=== PATIENT | male | born 1945 | race Caucasian/White ===

== ENCOUNTER → 2016-08-30 | Outpatient (CLI) | payer MEDICARE ==
[2016-08-30 10:07] LABS: ABSOLUTE BASOPHILS # (AUTO) 0.1 10^3/uL (0.0-0.2); ABSOLUTE EOSINOPHILS # (AUTO) 0.2 10^3/uL (0.0-0.6); ABSOLUTE LYMPHOCYTES (AUTO) 1.2 10^3/uL (0.5-4.7); ABSOLUTE MONOCYTES (AUTO) 0.5 10^3/uL (0.1-1.4); BASOPHILS % (AUTO) 0.8 % (0-2); EOSINOPHILS % (AUTO) 2.8 % (0-6); HEMATOCRIT 42.3 % (37.9-51.0); HEMOGLOBIN 14.4 g/dL (13.5-17.0); HGB HCT DIFFERENCE 0.9; LYMPHOCYTES % (AUTO) 17.1 % (13-45); MEAN CORPUSCULAR HEMOGLOBIN 29.2 pg (27.0-33.4); MEAN CORPUSCULAR HGB CONC 34.1 g/dL (32.0-36.0); MEAN CORPUSCULAR VOLUME 86 fl (80-97); MONOCYTES % (AUTO) 7.8 % (3-13); RED BLOOD COUNT 4.93 10^6/uL (4.35-5.55); RED CELL DISTRIBUTION WIDTH 14.3 % (11.5-14.0); SEGMENTED NEUTROPHILS % (AUTO) 71.5 % (42-78); WHITE BLOOD COUNT 6.9 10^3/uL (4.0-10.5)
[2016-08-30 10:39] LABS: ALANINE AMINOTRANSFERASE 27 U/L (21-72); ALBUMIN 3.9 g/dL (3.5-5.0); ALKALINE PHOSPHATASE 79 U/L (38-126); ANION GAP 13 (5-19); ASPARTATE AMINO TRANSFERASE 29 U/L (17-59); BILIRUBIN,DIRECT 0.1 mg/dL (0.0-0.4); BILIRUBIN,TOTAL 0.6 mg/dL (0.2-1.3); BLOOD UREA NITROGEN 28 mg/dL (7-20); CALCIUM 9.3 mg/dL (8.4-10.2); CARBON DIOXIDE 30 mmol/L (22-30); CHLORIDE 104 mmol/L (98-107); CHOLESTEROL 203.53 mg/dL (0-200); CREATININE RESULT 1.36 mg/dL (0.52-1.25); Direct HDL 41 mg/dL (>40); GLUCOSE 97 mg/dL (75-110); POTASSIUM 4.8 mmol/L (3.6-5.0); SODIUM 146.6 mmol/L (137-145); TOTAL PROTEIN 6.8 g/dL (6.3-8.2); TRIGLYCERIDES 140 mg/dL (<150)
[2016-08-30 10:50] LABS: DIRECT LDL 123 mg/dL (<100)
== END ==
LOC: OD 08:43
PROVIDERS: ATTEND Internal Medicine
DX: I10 Essential (primary) hypertension (principal); E78.5 Hyperlipidemia, unspecified; Z79.899 Other long term (current) drug therapy; G30.9 Alzheimer's disease, unspecified
CPT/HCPCS: 36415; 80053; 80061; 85025

== ENCOUNTER → 2017-11-10 | Outpatient (CLI) | payer MEDICARE ==
[2017-11-10 09:36] LABS: HEMATOCRIT 40.4 % (37.9-51.0); HEMOGLOBIN 13.9 g/dL (13.5-17.0); MEAN CORPUSCULAR HEMOGLOBIN 29.4 pg (27.0-33.4); MEAN CORPUSCULAR HGB CONC 34.5 g/dL (32.0-36.0); MEAN CORPUSCULAR VOLUME 85 fl (80-97); PLATELET COUNT 136 10^3/uL (150-450); RED BLOOD COUNT 4.75 10^6/uL (4.35-5.55); WHITE BLOOD COUNT 13.9 10^3/uL (4.0-10.5)
[2017-11-10 09:54] LABS: ALANINE AMINOTRANSFERASE 23 U/L (21-72); ALBUMIN 3.5 g/dL (3.5-5.0); ALKALINE PHOSPHATASE 83 U/L (38-126); ANION GAP 10 (5-19); ASPARTATE AMINO TRANSFERASE 23 U/L (17-59); BILIRUBIN,DIRECT 0.4 mg/dL (0.0-0.4); BILIRUBIN,TOTAL 1.1 mg/dL (0.2-1.3); BLOOD UREA NITROGEN 23 mg/dL (7-20); CALCIUM 8.8 mg/dL (8.4-10.2); CARBON DIOXIDE 29 mmol/L (22-30); CHLORIDE 101 mmol/L (98-107); CHOLESTEROL 159.17 mg/dL (0-200); GLUCOSE 119 mg/dL (75-110); SODIUM 139.8 mmol/L (137-145); TOTAL PROTEIN 6.8 g/dL (6.3-8.2); TRIGLYCERIDES 106 mg/dL (<150)
[2017-11-10 10:05] LABS: DIRECT LDL 84 mg/dL (<100)
[2017-11-10 10:06] LABS: ABSOLUTE LYMPHOCYTES# (MANUAL) 0.3 10^3/uL (0.5-4.7); ABSOLUTE MONOCYTES # (MANUAL) 0.7 10^3/uL (0.1-1.4); ABSOLUTE NEUTROPHILS# (MANUAL) 12.9 10^3/uL (1.7-8.2); BAND NEUTROPHILS % (MANUAL) 1 % (3-5); BASOPHILS % (MANUAL) 0 % (0-2); EOSINOPHILS % (MANUAL) 0 % (0-6); LYMPHOCYTES % (MANUAL) 2 % (13-45); MONOCYTES % (MANUAL) 5 % (3-13); SEGMENTED NEUTROPHILS % (MAN) 92 % (42-78); TOTAL CELLS COUNTED 100
[2017-11-10 10:07] LABS: PLATELET COMMENT ADEQUATE; RBC MORPHOLOGY COMMENT NORMO-CYTIC/CHROMIC; TOXIC GRANULATION 1+; TOXIC VACUOLATION PRESENT
== END ==
LOC: OD 08:49
PROVIDERS: ATTEND Internal Medicine
DX: I12.9 Hypertensive chronic kidney disease with stage 1 through stage 4 chronic kidney disease, or unspecified chronic kidney disease (principal); N18.3 Chronic kidney disease, stage 3 (moderate); R35.0 Frequency of micturition; R39.15 Urgency of urination; Z12.5 Encounter for screening for malignant neoplasm of prostate; Z79.899 Other long term (current) drug therapy
CPT/HCPCS: 36415; 85025; 80053; 80061; G0103

== ENCOUNTER → 2018-11-27 | Outpatient (CLI) | payer MEDICARE ==
[2018-11-27 10:58] LABS: ABSOLUTE EOSINOPHILS # (AUTO) 0.1 10^3/uL (0.0-0.6); ABSOLUTE LYMPHOCYTES (AUTO) 1.1 10^3/uL (0.5-4.7); ABSOLUTE MONOCYTES (AUTO) 0.4 10^3/uL (0.1-1.4); ABSOLUTE NEUT (AUTO) 3.6 10^3/uL (1.7-8.2); BASOPHILS % (AUTO) 0.8 % (0-2); EOSINOPHILS % (AUTO) 2.6 % (0-6); HEMATOCRIT 42.5 % (37.9-51.0); HEMOGLOBIN 14.6 g/dL (13.5-17.0); LYMPHOCYTES % (AUTO) 20.3 % (13-45); MEAN CORPUSCULAR HEMOGLOBIN 29.7 pg (27.0-33.4); MEAN CORPUSCULAR HGB CONC 34.2 g/dL (32.0-36.0); MEAN CORPUSCULAR VOLUME 87 fl (80-97); MONOCYTES % (AUTO) 8.2 % (3-13); PLATELET COUNT 161 10^3/uL (150-450); RED CELL DISTRIBUTION WIDTH 13.8 % (11.5-14.0); SEGMENTED NEUTROPHILS % (AUTO) 68.1 % (42-78); TOTAL CELLS COUNTED % (AUTO) 100 %; WHITE BLOOD COUNT 5.2 10^3/uL (4.0-10.5)
[2018-11-27 11:20] LABS: ALANINE AMINOTRANSFERASE 18 U/L (21-72); ALBUMIN 3.7 g/dL (3.5-5.0); ALKALINE PHOSPHATASE 74 U/L (38-126); ANION GAP 6 (5-19); ASPARTATE AMINO TRANSFERASE 24 U/L (17-59); BILIRUBIN,DIRECT 0.2 mg/dL (0.0-0.4); BILIRUBIN,TOTAL 0.6 mg/dL (0.2-1.3); BLOOD UREA NITROGEN 26 mg/dL (7-20); CALCIUM 9.1 mg/dL (8.4-10.2); CARBON DIOXIDE 32 mmol/L (22-30); CHLORIDE 107 mmol/L (98-107); CHOLESTEROL 185.34 mg/dL (0-200); GLUCOSE 97 mg/dL (75-110); SODIUM 144.9 mmol/L (137-145); TOTAL PROTEIN 6.8 g/dL (6.3-8.2); TRIGLYCERIDES 189 mg/dL (<150)
[2018-11-27 11:31] LABS: DIRECT LDL 120 mg/dL (<100)
[2018-11-27 11:53] LABS: VLDL CHOLESTEROL 37.8 mg/dL (10-31)
== END ==
LOC: OD 10:05
PROVIDERS: ATTEND Internal Medicine
DX: I12.9 Hypertensive chronic kidney disease with stage 1 through stage 4 chronic kidney disease, or unspecified chronic kidney disease (principal); N18.3 Chronic kidney disease, stage 3 (moderate); R35.0 Frequency of micturition; Z79.899 Other long term (current) drug therapy; Z12.5 Encounter for screening for malignant neoplasm of prostate; N40.1 Benign prostatic hyperplasia with lower urinary tract symptoms; R39.11 Hesitancy of micturition
CPT/HCPCS: 36415; 80053; 80061; 84153; 85025

== ENCOUNTER 2019-01-16 20:57 | Observation (INO) | payer MEDICARE ==
[2019-01-17] MEDS ORDERED: ACETAMINOPHEN 325 MG TABLET PO ONE ×2 (01:42→02:23)
[2019-01-17] MEDS ORDERED: NORMAL SALINE 1000 ML 1,000 ML IV ONE ×3 (02:23→06:29)
--- NOTE | 2019-01-17 02:32 | ER Document Report ---
ED General - General TRAVEL OUTSIDE OF THE [place] IN LAST 30 DAYS: No <YU MCGEE - Last Filed: 01/17/19 04:14> <SETH MERCADO - Last Filed: 01/17/19 07:31> - General Chief Complaint: Testicular Problem Stated Complaint: TESTICLE PROBLEM Time Seen by Provider: 01/17/19 01:59 Primary Care Provider: BARRINGTON MATTHEW MD [Primary Care Provider] - Follow up as needed - HPI Notes: Patient is a 74-year-old male, with a history of dementia, brought into emergency department for evaluation by daughter. She is the primary chart computer, as well as the primary historian. Patient evidently was lying in bed after a shower today. Patient's daughter noted an extremely foul-smelling drainage on the sheets below him. She thought he had a bowel movement. She took him to the bathroom to clean him up, realized this was not rectal. She then found swelling around his scrotum, so she brings him here for further evaluation. She was unaware of any fevers at home. She states he is actually been drinking more than normal. Otherwise has been acting normal, denies any pain, but the daughter states he usually answers questions with "no." She states a few weeks ago he did seem to have some urinary hesitancy, he actually has a urology follo w-up tomorrow. He had a urinalysis which was found to be unremarkable. (YU MCGEE) - Related Data Allergies/Adverse Reactions: No Known Allergies Allergy (Unverified 01/17/19 04:56) Past Medical History - General Information source: Relative - Social History Smoking Status: Unknown if Ever Smoked Family History: Reviewed & Not Pertinent - Past Medical History Cardiac Medical History: Reports: Hx Hypertension Renal/ Medical History: Reports: Hx Benign Prostatic Hyperplasia Psychiatric Medical History: Reports: Hx Dementia <YU MCGEE - Last Filed: 01/17/19 04:14> Review of Systems - Review of Systems Constitutional: See HPI EENT: No symptoms reported Respiratory: No symptoms reported Gastrointestinal: No symptoms reported Genitourinary: No symptoms reported Musculoskeletal: No symptoms reported Skin: See HPI Neurological/Psychological: No symptoms reported <YU MCGEE - Last Filed: 01/17/19 04:14> Physical Exam <FRIESYU - Last Filed: 01/17/19 04:14> - Vital signs Vitals: Temp Pulse Resp BP Pulse Ox 100.7 F H 80 17 104/58 L 94 01/16/19 21:18 01/16/19 21:18 01/16/19 21:18 01/16/19 21:18 01/16/19 21:18 - Notes Notes: This is a pleasant 74-year-old male who appears his stated age, no acute distress. Head is normocephalic and appears atraumatic. Pupils are equal round, reactive to light. Oral mucosa is moist. Heart is regular rate and rhythm, lungs are clear to station bilaterally. Abdomen is soft, nontender, normoactive bowel sounds. Testicular exam is performed with NADYA Grissom, present in the room. Patient has no significant scrotal edema or erythema. No testicular tenderness. Intact cremasteric reflex. Just to the left of the scrotum is an approximately 6 x 8 cm, erythematous, indurated lesion consistent with an abscess. It is markedly tender. There is a 2 mm opening in the center of the abscess, no significant drainage noted at this time. Extremities without cyanosis or clubbing. No posterior calf tenderness. Peripheral pulses are equal. (YU MCGEE) Course - Laboratory Result Diagrams: 01/17/19 02:30 01/17/19 02:30 <YU MCGEE - Last Filed: 01/17/19 04:14> - Laboratory Result Diagrams: 01/17/19 02:30 01/17/19 03:29 <SETH MERCADO - Last Filed: 01/17/19 07:31> - Re-evaluation Re-evalutation: 01/17/19 02:31 Patient presents to the emergency department for evaluation. As he was febrile and a poor historian, his presentation did prompt sepsis protocol. I did order 2 L of IV fluids, one is a bolus, 1 his maintenance. I am concerned that the 74-year-old male who does not complain in fact has some aspects of congestive heart failure. I was unable to find any visit history on this patient here, no echocardiograms noted. He was given Tylenol for his fever. CT scan of the pelvis was ordered to further evaluate the area, we will continue to monitor. 01/17/19 04:09 Still awaiting chemistry. Because of this, patient has not yet received CT scan. Patient does not meet sepsis criteria. While he is febrile, his heart rate is normal. His white blood cell count is normal. His respiratory rate is normal. I am still waiting to see what kind of surgical exploration might be necessary based on the extent of this abscess. Care of this patient was turned over physician Dr. Seth Mercado, please see his note for the remainder this patient's ED course and disposition. 01/17/19 04:14 And patient does not meet sepsis criteria at this time. He is resting comfortably. I did go ahead and order IV clindamycin to cover for pathogens in this region. (YU MCGEE) 01/17/19 04:37 Care assumed at 0 400. I went and examined the patient. Abdomen is nontender. I question mild bladder fullness but is nontender through that region. Creatinine level is normal and CT scan is ordered and is pending. Examination of the scrotal area shows the lower inferior left lateral aspect of the scrotum there appears to be an abscess measuring approximately 4 x 6 cm that does not extend to the gabbie-rectal region and does not cross the midline. Testicles are not involved although it is right along the edge of the scrotum. There is a obvious foul odor to the drainage which was sent for culture. Lactic acid is normal at 0.7, but patient has received 500 cc of IV normal saline and his systolic blood pressure is 89. Patient will be given additional IV fluids and will add vancomycin to the clindamycin the patient has received. Patient's regular medications are Flomax, Exelon, lisinopril, hydrochlorothiazide. CT scan can evaluate for urinary retention as well as the extent of the patient's abscess. Discussion was undertaken with the surgical list to came down to evaluate the patient and performed incision and drainage on the patient's scrotal abscess. There is concern for the patient's relative hypotension and possibility of sepsis. Patient had received 30 cc/kg of normal saline and has received vancomycin and clindamycin. Given the concern for possible sepsis, patient will need admission for further evaluation and observation and follow culture results. Call placed to the hospitalist at [phone]. 01/17/19 07:13 Discussed with DREAD Boateng who agreed to see the patient and admit. 01/17/19 07:30 (SETH MERCADO) - Vital Signs Vital signs: Temp Pulse Resp BP Pulse Ox 100.7 F H 80 16 104/65 95 01/16/19 21:18 01/16/19 21:18 01/17/19 07:02 01/17/19 07:02 01/17/19 07:02 - Laboratory Laboratory results interpreted by me: 01/17/19 01/17/19 01/17/19 02:30 03:29 06:03 RBC 4.30 L Hgb 12.6 L Hct 36.5 L Lymph % (Auto) 12.4 L Sodium 136.4 L Potassium 3.5 L BUN 25 H Glucose 113 H Total Protein 6.1 L Albumin 3.0 L Urine Urobilinogen 2.0 H Critical Care Note - Critical Care Note Total time excluding time spent on procedures (mins): 40 <SETH MERCADO - Last Filed: 01/17/19 07:31> Discharge <YU MCGEE - Last Filed: 01/17/19 04:14> - Discharge Admitting Provider: Lennie (Hospitalist) Unit Admitted: Telemetry <SETH MERCADO - Last Filed: 01/17/19 07:31> - Discharge Clinical Impression: Abscess, Sepsis associated hypotension Fever Qualifiers: Fever type: unspecified Qualified Code(s): R50.9 - Fever, unspecified Condition: Stable Disposition: ADMITTED INPATIENT Referrals: BARRINGTON MATTHEW MD [Primary Care Provider] - Follow up as needed
[2019-01-17 02:48] LABS: INTERNATIONAL RATION (INR) 1.13; PROTHROMBIN TIME 14.6 SEC (11.4-15.4)
[2019-01-17 02:51] LABS: ABSOLUTE EOSINOPHILS # (AUTO) 0.2 10^3/uL (0.0-0.6); ABSOLUTE LYMPHOCYTES (AUTO) 1.1 10^3/uL (0.5-4.7); ABSOLUTE MONOCYTES (AUTO) 0.8 10^3/uL (0.1-1.4); ABSOLUTE NEUT (AUTO) 6.8 10^3/uL (1.7-8.2); BASOPHILS % (AUTO) 0.3 % (0-2); EOSINOPHILS % (AUTO) 1.9 % (0-6); HEMATOCRIT 36.5 % (37.9-51.0); HEMOGLOBIN 12.6 g/dL (13.5-17.0); LYMPHOCYTES % (AUTO) 12.4 % (13-45); MEAN CORPUSCULAR HEMOGLOBIN 29.3 pg (27.0-33.4); MEAN CORPUSCULAR HGB CONC 34.5 g/dL (32.0-36.0); MEAN CORPUSCULAR VOLUME 85 fl (80-97); MONOCYTES % (AUTO) 9.3 % (3-13); PLATELET COUNT 217 10^3/uL (150-450); RED CELL DISTRIBUTION WIDTH 13.5 % (11.5-14.0); SEGMENTED NEUTROPHILS % (AUTO) 76.1 % (42-78); TOTAL CELLS COUNTED % (AUTO) 100 %; WHITE BLOOD COUNT 8.9 10^3/uL (4.0-10.5)
--- NOTE | 2019-01-17 02:51 | RADIOLOGY REPORT (SQ) ---
CLINICAL HISTORY: fever COMPARISON: None. TECHNIQUE: XR CHEST 1 VIEW 01/17/2019 1:42 AM CDT FINDINGS: Cardiac silhouette is normal in size. Lungs are clear without consolidation, atelectasis, mass or edema. There is no pleural effusion. There is no pneumothorax. There are no acute osseous findings. IMPRESSION: Clear lungs.
[2019-01-17 03:24] LABS: VENOUS BLOOD BASE EXCESS 4.9 mmol/L; VENOUS BLOOD HCO3 30.2 mmol/L (20-32); VENOUS BLOOD PCO2 47.3 mmHg (35-63); VENOUS BLOOD PH 7.42 (7.30-7.42)
[2019-01-17] MEDS ORDERED: CLINDAMYCIN 900 MG/D5W RTU 900 MG/50 ML RTUPB IV ONE (04:13)
[2019-01-17 04:15] LABS: ALKALINE PHOSPHATASE 79 U/L (38-126); ANION GAP 8 (5-19); ASPARTATE AMINO TRANSFERASE 19 U/L (17-59); BILIRUBIN,DIRECT 0.4 mg/dL (0.0-0.4); BILIRUBIN,TOTAL 0.4 mg/dL (0.2-1.3); BLOOD UREA NITROGEN 25 mg/dL (7-20); CALCIUM 8.4 mg/dL (8.4-10.2); CARBON DIOXIDE 26 mmol/L (22-30); CHLORIDE 102 mmol/L (98-107); GLUCOSE 113 mg/dL (75-110); POTASSIUM 3.5 mmol/L (3.6-5.0); TOTAL PROTEIN 6.1 g/dL (6.3-8.2)
[2019-01-17] MEDS ORDERED: VANCOMYCIN HCL INJ 1000 MG VIAL IV ONE (04:36)
--- NOTE | 2019-01-17 05:50 | RADIOLOGY REPORT (SQ) ---
CLINICAL HISTORY: left inguinal/periscrotal abscess COMPARISON: None. TECHNIQUE: CT PELVIS WITH IV CONTRAST on 01/17/2019 2:26 AM CDT This exam was performed according to our departmental dose-optimization program, which includes automated exposure control, adjustment of the mA and/or kV according to patient size and/or use of iterative reconstruction technique. FINDINGS: There is no bowel obstruction. Urinary bladder is unremarkable. There is no free fluid. Skeleton: There are no acute osseous findings. No suspicious bony lesions. There are phlegmonous changes within the left scrotum. There may be a small associated fluid collection measuring 3.2 x 1.8 cm. There is diffuse thickening of the left scrotal skin. IMPRESSION: Left scrotal phlegmonous changes with possible small associated abscess. No subcutaneous air.
[2019-01-17] MEDS ORDERED: LIDOCAINE 1% INJ-PF (10 MG/ML) 30 ML SDV INJ ONE (06:06)
[2019-01-17] MEDS ORDERED: LIDOCAINE 1%/EPINEPHRINE INJ 20 ML VIAL ONE (06:30)
[2019-01-17 06:43] LABS: APPEARANCE,URINE SLIGHTLY-CLOUDY; BILIRUBIN,URINE NEGATIVE (NEGATIVE); COLOR,URINE YELLOW; GLUCOSE, URINE NEGATIVE (NEGATIVE); KETONES,URINE NEGATIVE (NEGATIVE); LEUKOCYTE ESTERASE,URINE NEGATIVE (NEGATIVE); NITRITE,URINE NEGATIVE (NEGATIVE); PROTEIN,URINE NEGATIVE (NEGATIVE); URINE SPECIFIC GRAVITY 1.023
--- NOTE | 2019-01-17 07:17 | EKG REPORT ---
SEVERITY:- ABNORMAL ECG - SINUS RHYTHM LEFT ANTERIOR FASCICULAR BLOCK CONSIDER ANTERIOR INFARCT BORDERLINE T ABNORMALITIES, INFERIOR LEADS : Confirmed by: Nikita Bridges MD 17-Jan-2019 07:16:52
--- NOTE | 2019-01-17 09:23 | PDOC CONSULTATION ---
Consultation Consult Date: 01/17/19 Provider Consulted: DIONNE FARIAS History of Present Illness Admission Date/PCP: 01/17/19 07:45 BARRINGTON MATTHEW MD History of Present Illness: PURA BROWN is a 74 year old male who presented to the emergency room with testicular swelling and scrotal swelling noted by his daughter while he was taking a shower. The daughter also noticed purulent drainage and brought the patient to the emergency room. Patient was seen by the emergency room physician who ordered a CT scan which showed a large scrotal abscess on the left side of the scrotum. Surgical consultation is obtained for incision and drainage. Past Medical History Cardiac Medical History: Reports: Hypertension Psychiatric Medical History: Reports: Dementia Social History Smoking Status: Unknown if Ever Smoked Family History Family History: Reviewed & Not Pertinent Parental Family History Reviewed: No Children Family History Reviewed: NA Sibling(s) Family History Reviewed.: NA Medication/Allergy Allergies/Adverse Reactions: No Known Allergies Allergy (Unverified 01/17/19 04:56) Review of Systems ROS unobtainable: Due to mental status Constitutional: ABSENT: chills, fever(s), headache(s), weight gain, weight loss Eyes: PRESENT: as per HPI. ABSENT: visual disturbances Nose, Mouth, and Throat: PRESENT: as per HPI Cardiovascular: PRESENT: as per HPI Respiratory: PRESENT: as per HPI Gastrointestinal: PRESENT: as per HPI Genitourinary: PRESENT: as per HPI Musculoskeletal: PRESENT: as per HPI Integumentary: PRESENT: as per HPI Neurological: PRESENT: as per HPI Psychiatric: PRESENT: as per HPI Endocrine: PRESENT: as per HPI Hematologic/Lymphatic: PRESENT: as per HPI Allergic/Immunologic: PRESENT: as per HPI Physical Exam Vital Signs: Temp Pulse Resp BP Pulse Ox 100.7 F H 80 12 109/59 L 97 01/16/19 21:18 01/16/19 21:18 01/17/19 09:01 01/17/19 09:00 01/17/19 09:01 Intake & Output 01/16/19 01/17/19 01/18/19 06:59 06:59 06:59 Intake Total 1050 Balance 1050 Weight 71.5 kg General appearance: PRESENT: no acute distress, cooperative Head exam: PRESENT: atraumatic Eye exam: PRESENT: EOMI Ear exam: PRESENT: normal external ear exam Mouth exam: PRESENT: dry mucosa Teeth exam: PRESENT: edentulous Neck exam: PRESENT: full ROM Respiratory exam: PRESENT: clear to auscultation mckayla Cardiovascular exam: PRESENT: RRR Pulses: PRESENT: normal femoral pulses, normal dorsalis pedis pul Vascular exam: PRESENT: normal capillary refill GI/Abdominal exam: PRESENT: soft Rectal exam: PRESENT: deferred Gentrourinary exam: PRESENT: scrotal swelling - Approximately a 3 cm abscess in the left scrotal wall Extremities exam: PRESENT: full ROM Musculoskeletal exam: PRESENT: full ROM Neurological exam: PRESENT: awake Psychiatric exam: PRESENT: agitated Skin exam: PRESENT: dry Results Laboratory Results: 01/17/19 02:30 01/17/19 03:29 01/17/19 01/17/19 01/17/19 02:30 02:30 02:30 WBC 8.9 RBC 4.30 L Hgb 12.6 L Hct 36.5 L MCV 85 MCH 29.3 MCHC 34.5 RDW 13.5 Plt Count 217 Seg Neutrophils % 76.1 VBG pH VBG pCO2 VBG HCO3 VBG Base Excess Sodium Cancelled Potassium Cancelled Chloride Cancelled Carbon Dioxide Cancelled Anion Gap Cancelled BUN Cancelled Creatinine Cancelled Est GFR ( Amer) Cancelled Est GFR (Non-Af Amer) Cancelled Glucose Cancelled Lactic Acid 0.7 Calcium Cancelled Total Bilirubin Cancelled AST Cancelled Alkaline Phosphatase Cancelled Total Protein Cancelled Albumin Cancelled Urine Color Urine Appearance Urine pH Ur Specific [place] Urine Protein Urine Glucose (UA) Urine Ketones Urine Blood Urine Nitrite Ur Leukocyte Esterase Urine WBC (Auto) Urine RBC (Auto) 01/17/19 01/17/19 01/17/19 03:03 03:29 06:03 WBC RBC Hgb Hct MCV MCH MCHC RDW Plt Count Seg Neutrophils % VBG pH 7.42 VBG pCO2 47.3 VBG HCO3 30.2 VBG Base Excess 4.9 Sodium 136.4 L Potassium 3.5 L Chloride 102 Carbon Dioxide 26 Anion Gap 8 BUN 25 H Creatinine 1.15 Est GFR ( Amer) > 60 Est GFR (Non-Af Amer) Glucose 113 H Lactic Acid Calcium 8.4 Total Bilirubin 0.4 AST 19 Alkaline Phosphatase 79 Total Protein 6.1 L Albumin 3.0 L Urine Color YELLOW Urine Appearance SLIGHTLY-CLOUDY Urine pH 5.0 Ur Specific [place] 1.023 Urine Protein NEGATIVE Urine Glucose (UA) NEGATIVE Urine Ketones NEGATIVE Urine Blood NEGATIVE Urine Nitrite NEGATIVE Ur Leukocyte Esterase NEGATIVE Urine WBC (Auto) 1 Urine RBC (Auto) 1 Impressions: Chest X-Ray 01/17/19 01:42 IMPRESSION: Clear lungs. Pelvis CT 01/17/19 02:26 IMPRESSION: Left scrotal phlegmonous changes with possible small associated abscess. No subcutaneous air. Assessment & Plan - Plan Summary Plan Summary: Scrotal abscess left scrotal wall Plan for incision and drainage at bedside.
--- NOTE | 2019-01-17 09:26 | Operative Report ---
Nonrecallable Operative Report DATE OF SURGERY: 01/17/19 PREOPERATIVE DIAGNOSIS: Scrotal abscess POSTOPERATIVE DIAGNOSIS: Scrotal abscess OPERATION: Incision and drainage of scrotal abscess SURGEON: DIONNE FARIAS ANESTHESIA: Local TISSUE REMOVED OR ALTERED: None COMPLICATIONS: None ESTIMATED BLOOD LOSS: 5 cc INTRAOPERATIVE FINDINGS: See procedure note PROCEDURE: Patient was placed in a frog-leg position on the emergency room [facility] the left scrotum was prepped and draped in the usual sterile fashion after appropriate timeout and site verification the area over the lateral aspect of the left scrotum was anesthetized with 1% lidocaine with epinephrine. A 3 cm incision was made longitudinally over t the abscess cavity and dissection was carried down through subcutaneous tissue with the 11 blade that was used to make the initial incision. Quickly we entered the abscess cavity. Large amount of all clot and necrotic debris as well as pus exudes was drained from the abscess cavity. Was then irrigated with sterile saline. The abscess cavity was then packed with a iodoform impregnated strip gauze. A scrotal support and sterile dressing were applied at the termination of the procedure.
[2019-01-17] MEDS ORDERED: ACETAMINOPHEN 325 MG TABLET PO PRN (09:33)
[2019-01-17] MEDS ORDERED: ONDANSETRON 4 MG TAB.RAPDIS PO PRN (09:33)
[2019-01-17] MEDS ORDERED: ALBUTEROL SULFATE 0.083% NEB 2.5 MG/3 ML AMPUL NEB PRN (09:33)
[2019-01-17] MEDS ORDERED: MAG HYDROX/AL HYDROX/SIMETH SUSP 30 ML UDCUP PO PRN (09:33)
[2019-01-17] MEDS: DOCUSATE SODIUM 100 MG CAPSULE PO SCH (11:58)
[2019-01-17] MEDS: CLINDAMYCIN HCL 150 MG CAPSULE PO SCH ×2 (12:34→17:13)
[2019-01-17] MEDS: HEPARIN SOD (PORCINE) 5,000 UNIT/ML 1 ML VIAL SUBCUT SCH ×2 (16:43→21:18)
[2019-01-17] MEDS ORDERED: (PENDING PHARMACY ID) (Rivastigmine Tartrate [Rivastigmine] 6 MG) PO SCH (18:00)
--- NOTE | 2019-01-17 20:27 | PDOC H&P ---
History of Present Illness Admission Date/PCP: 01/17/19 07:45 BARRINGTON MATTHEW MD History of Present Illness: PURA BROWN is a 74 year old male with a past medical history significant for hypertension, BPH, and advanced dementia who was seen in the emergency department today with a scrotum abscess, now status post I&D by Dr. Adams. Patient had been preparing to discharge to home when he was noted to have Hypotension with a blood pressure of 89/59. Evaluation in the emergency department revealed normal WBC, baseline anemia (hemoglobin 12), overall unremarkable chemistry, negative urinalysis, normal chest x-ray, and pelvic CT that demonstrated left scrotal changes with possible small abscess. He was referred to the hospitalist service for observational admission and mejia gement of hypotension. Past Medical History Cardiac Medical History: Reports: Hypertension Denies: Coronary Artery Disease, Myocardial Infarction, Hyperlipidema Pulmonary Medical History: Reports: None EENT Medical History: Reports: None Neurological Medical History: Reports: Other - Dementia Endocrine Medical History: Reports: None Renal/ Medical History: Reports: None Malignancy Medical History: Reports: None GI Medical History: Reports: None Musculoskeltal Medical History: Reports: None Skin Medical History: Reports: None Psychiatric Medical History: Reports: Dementia, Depression Traumatic Medical History: Reports: None Hematology: Reports: None Infectious Medical History: Reports: None Past Surgical History Past Surgical History: Reports: Cholecystectomy Social History Information Source: Patient Lives with: Family Smoking Status: Former Smoker Frequency of Alcohol Use: None Hx Recreational Drug Use: No Hx Prescription Drug Abuse: No - Advance Directive Resuscitation Status: Do Not Resuscitate Surrogate healthcare decision maker:: The patient's daughter, Susan Santana, Family History Family History: Reviewed & Not Pertinent Parental Family History Reviewed: Yes Children Family History Reviewed: Yes Sibling(s) Family History Reviewed.: Yes Medication/Allergy Home Medications: Cyanocobalamin (Vitamin B-12) [B-12] 1,000 mcg PO DAILY 01/17/19 Lisinopril/Hydrochlorothiazide [Lisinopril-Hctz 20-12.5 mg Tab] 1 each PO DAILY 01/17/19 Quetiapine Fumarate [Seroquel] 200 mg PO QHS 01/17/19 Rivastigmine Tartrate [Rivastigmine] 6 mg PO BID 01/17/19 Tamsulosin HCl [Flomax 0.4 mg Cap.sr] 0.4 mg PO DAILY 01/17/19 Allergies/Adverse Reactions: No Known Allergies Allergy (Unverified 01/17/19 04:56) Review of Systems Constitutional: ABSENT: chills, fever(s), headache(s), weight gain, weight loss Eyes: ABSENT: visual disturbances Ears: ABSENT: hearing changes Cardiovascular: ABSENT: chest pain, dyspnea on exertion, edema, orthropnea, palpitations Respiratory: ABSENT: cough, hemoptysis Gastrointestinal: ABSENT: abdominal pain, constipation, diarrhea, hematemesis, hematochezia, nausea, vomiting Genitourinary: ABSENT: dysuria, hematuria Musculoskeletal: ABSENT: joint swelling Integumentary: PRESENT: wounds. ABSENT: rash Neurological: ABSENT: abnormal gait, abnormal speech, confusion, dizziness, focal weakness, syncope Psychiatric: ABSENT: anxiety, depression, homidical ideation, suicidal ideation Endocrine: ABSENT: cold intolerance, heat intolerance, polydipsia, polyuria Hematologic/Lymphatic: ABSENT: easy bleeding, easy bruising Physical Exam Vital Signs: Temp Pulse Resp BP Pulse Ox 97.3 F 56 L 17 120/68 100 01/17/19 15:20 01/17/19 15:20 01/17/19 15:20 01/17/19 15:20 01/17/19 15:20 Intake & Output 01/16/19 01/17/19 01/18/19 06:59 06:59 06:59 Intake Total 1050 2240 Balance 1050 2240 Weight 71.5 kg General appearance: PRESENT: no acute distress, cooperative, well-developed, well-nourished Head exam: PRESENT: atraumatic, normocephalic Eye exam: PRESENT: conjunctiva pink, EOMI, PERRLA. ABSENT: scleral icterus Ear exam: PRESENT: normal external ear exam Mouth exam: PRESENT: moist, tongue midline Neck exam: ABSENT: carotid bruit, JVD, lymphadenopathy, thyromegaly Respiratory exam: PRESENT: clear to auscultation mckayla. ABSENT: rales, rhonchi, wheezes Cardiovascular exam: PRESENT: RRR. ABSENT: diastolic murmur, rubs, systolic murmur Pulses: PRESENT: normal dorsalis pedis pul Vascular exam: PRESENT: normal capillary refill GI/Abdominal exam: PRESENT: normal bowel sounds, soft. ABSENT: distended, guarding, mass, organolmegaly, rebound, tenderness Rectal exam: PRESENT: deferred Extremities exam: PRESENT: full ROM. ABSENT: calf tenderness, clubbing, pedal edema Neurological exam: PRESENT: alert, awake, oriented to person, CN II-XII grossly intact, other - Conversational, socially appropriate, pleasantly confused. ABSENT: motor sensory deficit Psychiatric exam: PRESENT: appropriate affect, normal mood. ABSENT: homicidal ideation, suicidal ideation Skin exam: PRESENT: dry, warm, other - I&D to sacrum not visualized; clean dry dressing intact.. ABSENT: cyanosis, rash Results Laboratory Results: 01/17/19 02:30 01/17/19 03:29 01/17/19 01/17/19 01/17/19 02:30 02:30 02:30 WBC 8.9 RBC 4.30 L Hgb 12.6 L Hct 36.5 L MCV 85 MCH 29.3 MCHC 34.5 RDW 13.5 Plt Count 217 Seg Neutrophils % 76.1 VBG pH VBG pCO2 VBG HCO3 VBG Base Excess Sodium Cancelled Potassium Cancelled Chloride Cancelled Carbon Dioxide Cancelled Anion Gap Cancelled BUN Cancelled Creatinine Cancelled Est GFR ( Amer) Cancelled Est GFR (Non-Af Amer) Cancelled Glucose Cancelled Lactic Acid 0.7 Calcium Cancelled Total Bilirubin Cancelled AST Cancelled Alkaline Phosphatase Cancelled Total Protein Cancelled Albumin Cancelled Urine Color Urine Appearance Urine pH Ur Specific [place] Urine Protein Urine Glucose (UA) Urine Ketones Urine Blood Urine Nitrite Ur Leukocyte Esterase Urine WBC (Auto) Urine RBC (Auto) 01/17/19 01/17/19 01/17/19 03:03 03:29 06:03 WBC RBC Hgb Hct MCV MCH MCHC RDW Plt Count Seg Neutrophils % VBG pH 7.42 VBG pCO2 47.3 VBG HCO3 30.2 VBG Base Excess 4.9 Sodium 136.4 L Potassium 3.5 L Chloride 102 Carbon Dioxide 26 Anion Gap 8 BUN 25 H Creatinine 1.15 Est GFR ( Amer) > 60 Est GFR (Non-Af Amer) Glucose 113 H Lactic Acid Calcium 8.4 Total Bilirubin 0.4 AST 19 Alkaline Phosphatase 79 Total Protein 6.1 L Albumin 3.0 L Urine Color YELLOW Urine Appearance SLIGHTLY-CLOUDY Urine pH 5.0 Ur Specific [place] 1.023 Urine Protein NEGATIVE Urine Glucose (UA) NEGATIVE Urine Ketones NEGATIVE Urine Blood NEGATIVE Urine Nitrite NEGATIVE Ur Leukocyte Esterase NEGATIVE Urine WBC (Auto) 1 Urine RBC (Auto) 1 Impressions: Chest X-Ray 01/17/19 01:42 IMPRESSION: Clear lungs. Pelvis CT 01/17/19 02:26 IMPRESSION: Left scrotal phlegmonous changes with possible small associated abscess. No subcutaneous air. Assessment and Plan - Diagnosis (1) Hypotension Is this a current diagnosis for this admission?: Yes Plan: Unclear etiology; possibly related to the patient's antihypertensive medications. Patient's daughter reports that she has asked the primary care provider whether or not a reduction in his dose may be appropriate as he does tend to have low blood pressures. She reports that systolic blood pressure is typically 100-110. Patient did receive 3 L IV fluids by the ED provider.He has adequate p.o. intake, therefore will discontinue further IV fluids. We will hold the patient's home dose lisinopril/hydrochlorothiazide. Fall precautions. (2) Abscess Is this a current diagnosis for this admission?: Yes Plan: Now status post I&D by Dr. Adams. Patient's daughter, primary tea and spice supervisor, has been educated on appropriate packing removal and wound care by the surgeon. Continue p.o. clindamycin. (3) Fever Qualifiers: Fever type: unspecified Qualified Code(s): R50.9 - Fever, unspecified Is this a current diagnosis for this admission?: Yes Plan: Secondary to #1. T-max 100.7. Cultures and antibiotics as above. (4) Dementia Is this a current diagnosis for this admission?: Yes Plan: We will continue home medication regiment. Fall precautions. Supportive care. - Time Time Spent with patient: 35 or more minutes Medications reviewed and adjusted accordingly: Yes Anticipated discharge: Home Within: within 24 hours
[2019-01-17] MEDS: QUETIAPINE FUMARATE 100 MG TABLET PO SCH (21:16)
[2019-01-17] MEDS: RIVASTIGMINE TARTRATE 1.5 MG CAPSULE PO SCH (21:17)
[2019-01-17] MEDS: TAMSULOSIN HCL 0.4 MG CAP.SR.24H PO SCH (21:23)
[2019-01-17] MEDS ORDERED: (PENDING PHARMACY ID) (Quetiapine Fumarate [Seroquel] 200 MG) PO SCH (22:00)
[2019-01-18] MEDS: CLINDAMYCIN HCL 150 MG CAPSULE PO SCH ×4 (01:32→17:04)
[2019-01-18 05:15] LABS: HEMATOCRIT 33.4 % (37.9-51.0); HEMOGLOBIN 11.4 g/dL (13.5-17.0); MEAN CORPUSCULAR HGB CONC 34.3 g/dL (32.0-36.0); MEAN CORPUSCULAR VOLUME 85 fl (80-97); PLATELET COUNT 179 10^3/uL (150-450); RED BLOOD COUNT 3.94 10^6/uL (4.35-5.55); RED CELL DISTRIBUTION WIDTH 13.5 % (11.5-14.0); WHITE BLOOD COUNT 5.3 10^3/uL (4.0-10.5)
[2019-01-18] MEDS: HEPARIN SOD (PORCINE) 5,000 UNIT/ML 1 ML VIAL SUBCUT SCH ×3 (05:48→21:30)
[2019-01-18] MEDS: CYANOCOBALAMIN (VITAMIN B-12) 1,000 MCG TABLET PO SCH (09:23)
[2019-01-18] MEDS: DOCUSATE SODIUM 100 MG CAPSULE PO SCH (09:23)
[2019-01-18] MEDS: RIVASTIGMINE TARTRATE 1.5 MG CAPSULE PO SCH ×2 (09:46→21:28)
[2019-01-18] MEDS ORDERED: TAMSULOSIN HCL 0.4 MG CAP.SR.24H PO SCH (10:00)
--- NOTE | 2019-01-18 10:24 | PDOC PROGRESS REPORT ---
Subjective Progress Note for:: 01/18/19 Subjective:: pains I&D site Reason For Visit: HYPOTENSION, SCROTAL ABSCESS Physical Exam Vital Signs: Temp Pulse Resp BP Pulse Ox 97.3 F 63 16 120/60 99 01/18/19 07:25 01/18/19 07:25 01/18/19 07:25 01/18/19 07:25 01/18/19 07:25 Intake & Output 01/17/19 01/18/19 01/19/19 06:59 06:59 06:59 Intake Total 1050 2240 Output Total 2 Balance 1050 2238 Weight 71.5 kg 74.3 kg Exam: Packing from left scrotal area removed. Has a scanty amount of pus. Repacked with 0.25 inch iodoform gauze. Results Laboratory Results: 01/18/19 04:44 01/17/19 03:29 01/18/19 04:44 WBC 5.3 RBC 3.94 L Hgb 11.4 L Hct 33.4 L MCV 85 MCH 29.0 MCHC 34.3 RDW 13.5 Plt Count 179 Impressions: Chest X-Ray 01/17/19 01:42 IMPRESSION: Clear lungs. Pelvis CT 01/17/19 02:26 IMPRESSION: Left scrotal phlegmonous changes with possible small associated abscess. No subcutaneous air. Assessment & Plan - Diagnosis (1) Abscess Is this a current diagnosis for this admission?: Yes - Time Time Spent with patient: 15-24 minutes - Inpatient Certification Medical Necessity: Need for IV Antibiotics - Plan Summary Plan Summary: Continue packing changes daily next 3-5 days. Continue IV antibiotics at least 48 hrs.
[2019-01-18] MEDS ORDERED: ONDANSETRON 4 MG TAB.RAPDIS PO PRN (13:00)
[2019-01-18] MEDS: TAMSULOSIN HCL 0.4 MG CAP.SR.24H PO SCH (17:02)
[2019-01-18] MEDS: QUETIAPINE FUMARATE 100 MG TABLET PO SCH (21:29)
--- NOTE | 2019-01-18 22:10 | PDOC PROGRESS REPORT ---
Subjective Progress Note for:: 01/18/19 Subjective:: PURA BROWN is a 74 year old male with a past medical history significant for hypertension, BPH, and advanced dementia who was seen in the emergency department with a scrotum abscess, now status post I&D by Dr. Adams who was admitted 01/17/19 for hypotension. Patient was seen on afternoon rounds with daughter present. He was found sitting up in the chair comfortably on room air. He is awake, alert, socially appropriate, but answered "yes" to all questions. ROS is limited secondary to baseline mental status. No new questions or concerns per daughter. No concerns per nursing. Reason For Visit: HYPOTENSION, SCROTAL ABSCESS Physical Exam Vital Signs: Temp Pulse Resp BP Pulse Ox 98.1 F 67 16 134/65 H 100 01/18/19 16:11 01/18/19 16:11 01/18/19 16:11 01/18/19 16:11 01/18/19 16:11 Intake & Output 01/17/19 01/18/19 01/19/19 06:59 06:59 06:59 Intake Total 1050 2240 360 Output Total 2 Balance 1050 2238 360 Weight 71.5 kg 74.3 kg General appearance: PRESENT: no acute distress, well-developed, well-nourished Head exam: PRESENT: atraumatic, normocephalic Eye exam: PRESENT: conjunctiva pink, EOMI, PERRLA. ABSENT: scleral icterus Ear exam: PRESENT: normal external ear exam Mouth exam: PRESENT: moist, tongue midline Neck exam: ABSENT: carotid bruit, JVD, lymphadenopathy, thyromegaly Respiratory exam: PRESENT: clear to auscultation mckayla. ABSENT: rales, rhonchi, wheezes Cardiovascular exam: PRESENT: RRR. ABSENT: diastolic murmur, rubs, systolic murmur Pulses: PRESENT: normal dorsalis pedis pul Vascular exam: PRESENT: normal capillary refill GI/Abdominal exam: PRESENT: normal bowel sounds, soft. ABSENT: distended, guarding, mass, organolmegaly, rebound, tenderness Rectal exam: PRESENT: deferred Extremities exam: PRESENT: full ROM. ABSENT: calf tenderness, clubbing, pedal edema Neurological exam: PRESENT: alert, awake, oriented to person, CN II-XII grossly intact, other - Socially appropriate, follows directions. Impulsive but redirectable. At baseline per daughter.. ABSENT: oriented to place, oriented to time, oriented to situation, motor sensory deficit Psychiatric exam: PRESENT: appropriate affect, normal mood. ABSENT: homicidal ideation, suicidal ideation Skin exam: PRESENT: dry, intact, warm. ABSENT: cyanosis, rash Results Laboratory Results: 01/18/19 04:44 01/17/19 03:29 01/18/19 04:44 WBC 5.3 RBC 3.94 L Hgb 11.4 L Hct 33.4 L MCV 85 MCH 29.0 MCHC 34.3 RDW 13.5 Plt Count 179 Impressions: Chest X-Ray 01/17/19 01:42 IMPRESSION: Clear lungs. Pelvis CT 01/17/19 02:26 IMPRESSION: Left scrotal phlegmonous changes with possible small associated abscess. No subcutaneous air. Assessment and Plan - Diagnosis (1) Hypotension Is this a current diagnosis for this admission?: Yes Plan: Resolved; likely related to the patient's antihypertensive medications. Patient's daughter reports that she has asked the primary care provider whether or not a reduction in his dose may be appropriate as he does tend to have low blood pressures. She reports that systolic blood pressure is typically 100-110. Patient did receive 3 L IV fluids by the ED provider. No further IVF. Orthostatic blood pressures were negative. We will hold the patient's home dose lisinopril/hydrochlorothiazide. Fall precautions. (2) Abscess Is this a current diagnosis for this admission?: Yes Plan: Now status post I&D by Dr. Adams. Discussed with Dr. Todd today. Recommended keeping overnight for monitoring secondary to amount of drainage. Repack wound tomorrow prior to discharge and then arrange for home health nursing to do dressing/packing changes every other day. Continue p.o. clindamycin. (3) Fever Qualifiers: Fever type: unspecified Qualified Code(s): R50.9 - Fever, unspecified Is this a current diagnosis for this admission?: Yes Plan: Resolved. Secondary to #1. T-max 100.7 on arrival. Has remained afebrile since. Cultures and antibiotics as above. (4) Dementia Is this a current diagnosis for this admission?: Yes Plan: We will continue home medication regiment. Fall precautions. Supportive care. - Time Time Spent with patient: 15-24 minutes Medications reviewed and adjusted accordingly: Yes Anticipated discharge: Home with Homehealth Within: within 24 hours
[2019-01-19] MEDS: CLINDAMYCIN HCL 150 MG CAPSULE PO SCH ×3 (01:40→12:40)
[2019-01-19] MEDS: HEPARIN SOD (PORCINE) 5,000 UNIT/ML 1 ML VIAL SUBCUT SCH (06:05)
--- NOTE | 2019-01-19 09:16 | PDOC PROGRESS REPORT ---
Subjective Progress Note for:: 01/19/19 Subjective:: less pains at I&D site Reason For Visit: HYPOTENSION, SCROTAL ABSCESS Physical Exam Vital Signs: Temp Pulse Resp BP Pulse Ox 98.0 F 60 14 104/57 L 97 01/19/19 03:16 01/19/19 09:06 01/19/19 09:06 01/19/19 03:16 01/19/19 09:06 Intake & Output 01/18/19 01/19/19 01/20/19 06:59 06:59 06:59 Intake Total 2240 360 Output Total 2 3 Balance 2238 357 Weight 74.3 kg 74.6 kg Exam: Packing in place at I&D site.Nurse to place new packing with iodoform gauze prior to discharge today Results Laboratory Results: 01/18/19 04:44 01/17/19 03:29 01/17/19 06:03 Catheterized Urine Urine Culture - Final NO GROWTH 2 DAYS Impressions: Chest X-Ray 01/17/19 01:42 IMPRESSION: Clear lungs. Pelvis CT 01/17/19 02:26 IMPRESSION: Left scrotal phlegmonous changes with possible small associated abscess. No subcutaneous air. Assessment & Plan - Diagnosis (1) Abscess Is this a current diagnosis for this admission?: Yes - Time Time Spent with patient: 15-24 minutes - Plan Summary Plan Summary: OK to discharge today with po antibiotics and VNA visits for packing changes every other day for next 2-3 weeks We can follow him up at the surgical clinic after 2 weeks
[2019-01-19] MEDS: DOCUSATE SODIUM 100 MG CAPSULE PO SCH (10:02)
[2019-01-19] MEDS: RIVASTIGMINE TARTRATE 1.5 MG CAPSULE PO SCH (10:16)
[2019-01-19] MEDS: CYANOCOBALAMIN (VITAMIN B-12) 1,000 MCG TABLET PO SCH (10:16)
[2019-01-19 12:19] VITALS: BP 122/52
--- NOTE | 2019-01-21 18:04 | PDOC DISCHARGE SUMMARY ---
General - Admit/Disc Date/PCP Admission Date/Primary Care Provider: 01/17/19 07:45 BARRINGTON MATTHEW MD Discharge Date: 01/19/19 - Discharge Diagnosis (1) Hypotension Is this a current diagnosis for this admission?: Yes (2) Abscess Is this a current diagnosis for this admission?: Yes (3) Fever Is this a current diagnosis for this admission?: Yes (4) Dementia Is this a current diagnosis for this admission?: Yes - Additional Information Resuscitation Status: Do Not Resuscitate Discharge Diet: As Tolerated Discharge Activity: Activity As Tolerated, Balance Activity w/Rest Prescriptions: Clindamycin HCl [Cleocin 150 mg Capsule] 300 mg PO Q6 #20 capsule Home Medications: Cyanocobalamin (Vitamin B-12) [B-12] 1,000 mcg PO DAILY 01/17/19 Quetiapine Fumarate [Seroquel] 200 mg PO QHS 01/17/19 Rivastigmine Tartrate [Rivastigmine] 6 mg PO BID 01/17/19 Tamsulosin HCl [Flomax 0.4 mg Cap.sr] 0.4 mg PO DAILY 01/17/19 Acetaminophen [Tylenol 325 mg Tablet] 650 mg PO Q4HP PRN tablet 01/18/19 Clindamycin HCl [Cleocin 150 mg Capsule] 300 mg PO Q6 #20 capsule 01/18/19 Docusate Sodium [Colace 100 mg Capsule] 100 mg PO DAILY capsule 01/18/19 History of Present Illness History of Present Illness: PURA BROWN is a 74 year old male with a past medical history significant for hypertension, BPH, and advanced dementia who was seen in the emergency department today with a scrotum abscess, now status post I&D by Dr. Adams. Patient had been preparing to discharge to home when he was noted to have Hypotension with a blood pressure of 89/59. Evaluation in the emergency department revealed normal WBC, baseline anemia (hemoglobin 12), overall unremarkable chemistry, negative urinalysis, normal chest x-ray, and pelvic CT that demonstrated left scrotal changes with possible small abscess. He was referred to the hospitalist service for observational admission and management of hypotension. Hospital Course Hospital Course: The patient was admitted for observation secondary to hypotension noted following bedside I&D by the surgeon. Patient's daughter informed me that she has concerns regarding his hypertension medications due to multiple episodes of hypotension. He was admitted to the telemetry floor and his home lisinopril/hydrochlorothiaz pancho were placed on hold. Surgery follow the patient for wound care; recommends continuing home health nursing for wound care every other day with follow-up in the [facility] in 2 weeks. Patient to complete a course of clindamycin; wound cultures reveal Klebsiella pneumoniae which is sensitive. Blood cultures are negative. At time of discharge, the patient was in stable condition, normotensive without antihypertensive medications, and ambulatory on room air. He is discharged home in the care of family members with home health nursing services for wound care. He is prescribed clindamycin. He is instructed to follow-up with his primary care provider within 1 week and with the [facility] in 2 weeks. They are encouraged to return to the emergency department as needed for any concerning symptoms. Physical Exam Vital Signs: Temp Pulse Resp BP Pulse Ox 98.2 F 60 16 122/52 L 100 01/19/19 12:16 01/19/19 12:16 01/19/19 12:16 01/19/19 12:16 01/19/19 12:16 General appearance: PRESENT: no acute distress, cooperative, well-developed, well-nourished Head exam: PRESENT: atraumatic, normocephalic Eye exam: PRESENT: conjunctiva pink, EOMI, PERRLA. ABSENT: scleral icterus Ear exam: PRESENT: normal external ear exam Mouth exam: PRESENT: moist, tongue midline Neck exam: ABSENT: carotid bruit, JVD, lymphadenopathy, thyromegaly Respiratory exam: PRESENT: clear to auscultation mckayla. ABSENT: rales, rhonchi, wheezes Cardiovascular exam: PRESENT: RRR. ABSENT: diastolic murmur, rubs, systolic murmur Pulses: PRESENT: normal dorsalis pedis pul Vascular exam: PRESENT: normal capillary refill GI/Abdominal exam: PRESENT: normal bowel sounds, soft. ABSENT: distended, guarding, mass, organolmegaly, rebound, tenderness Rectal exam: PRESENT: deferred Extremities exam: PRESENT: full ROM. ABSENT: calf tenderness, clubbing, pedal edema Musculoskeletal exam: PRESENT: ambulatory Neurological exam: PRESENT: alert, awake, oriented to person, CN II-XII grossly intact, other - Socially appropriate, follows directions. Impulsive but redire ctable. At baseline per daughter. ABSENT: oriented to place, oriented to time, oriented to situation, motor sensory deficit Psychiatric exam: PRESENT: appropriate affect, normal mood. ABSENT: homicidal ideation, suicidal ideation Skin exam: PRESENT: dry, intact, warm. ABSENT: cyanosis, rash Results Laboratory Results: 01/18/19 04:44 01/17/19 03:29 Impressions: Chest X-Ray 01/17/19 01:42 IMPRESSION: Clear lungs. Pelvis CT 01/17/19 02:26 IMPRESSION: Left scrotal phlegmonous changes with possible small associated abscess. No subcutaneous air. Qualifiers - * PATIENT BEING DISCHARGED WITH ANY OF THE FOLLOWING DIAGNOSIS: No Acute Heart Failure - Is this a Heart Failure Patient?: No Plan Discharge Plan: The patient is discharged home with home health nursing services for wound care every other day for the next 2 weeks. Patient is to follow-up with [facility] in 2 weeks. He should follow-up with his primary care provider within 1 week. We have stopped his blood pressure medications due to persistent hypotension. He is instructed to complete his antibiotic regiment. Return to the emergency department as needed for concerning symptoms. Time Spent: Greater than 30 Minutes
== END 2019-01-19 13:35 | disposition home health service (06) ==
LOC: ER 20:57 → INTOOBSV 01-17 07:45 → EH 01-17 07:45 → 4S 01-17 15:08
PROVIDERS: ADMIT Internal Medicine; ATTEND Internal Medicine
PROC: 0V950ZX Drainage of Scrotum, Open Approach, Diagnostic (ICD-10-PCS; principal; 2019-01-17)
DX: N49.2 Inflammatory disorders of scrotum (principal); B96.1 Klebsiella pneumoniae [K. pneumoniae] as the cause of diseases classified elsewhere; R50.9 Fever, unspecified; I95.9 Hypotension, unspecified; F03.90 Unspecified dementia, unspecified severity, without behavioral disturbance, psychotic disturbance, mood disturbance, and anxiety; N40.0 Benign prostatic hyperplasia without lower urinary tract symptoms; D64.9 Anemia, unspecified; R45.1 Restlessness and agitation; M62.81 Muscle weakness (generalized); Z79.899 Other long term (current) drug therapy; Z66 Do not resuscitate; Z87.891 Personal history of nicotine dependence
CPT/HCPCS: 55100; 93005; 99291; 96361; 96365; 96367; 36415 ×2; 87040; 87086; 87070; 87205; 85025; 85027; 85610; 87075; 87077; 80053; 81001; 87186; 82803; 83605; 71045; 72193; 93010; 97530; 97116; 97163; G0378 ×4; A6266; A9270 ×14; J1644 ×3; J3490 ×2; J7030; J3370

== ENCOUNTER → 2020-05-30 | Outpatient (CLI) | payer MEDICARE ==
[2020-05-30 12:13] LABS: ABSOLUTE EOSINOPHILS # (AUTO) 0.1 10^3/uL (0.0-0.6); ABSOLUTE LYMPHOCYTES (AUTO) 0.6 10^3/uL (0.5-4.7); ABSOLUTE MONOCYTES (AUTO) 0.7 10^3/uL (0.1-1.4); ABSOLUTE NEUT (AUTO) 4.3 10^3/uL (1.7-8.2); BASOPHILS % (AUTO) 0.4 % (0-2); EOSINOPHILS % (AUTO) 1.1 % (0-6); HEMATOCRIT 42.4 % (37.9-51.0); HEMOGLOBIN 13.9 g/dL (13.5-17.0); LYMPHOCYTES % (AUTO) 10.2 % (13-45); MEAN CORPUSCULAR HEMOGLOBIN 27.7 pg (27.0-33.4); MEAN CORPUSCULAR HGB CONC 32.7 g/dL (32.0-36.0); MEAN CORPUSCULAR VOLUME 85 fl (80-97); MONOCYTES % (AUTO) 12.1 % (3-13); PLATELET COUNT 169 10^3/uL (150-450); RED BLOOD COUNT 5.01 10^6/uL (4.35-5.55); RED CELL DISTRIBUTION WIDTH 14.9 % (11.5-14.0); SEGMENTED NEUTROPHILS % (AUTO) 76.2 % (42-78); TOTAL CELLS COUNTED % (AUTO) 100 %; WHITE BLOOD COUNT 5.6 10^3/uL (4.0-10.5)
[2020-05-30 12:25] LABS: ALBUMIN 3.2 g/dL (3.5-5.0); ALKALINE PHOSPHATASE 95 U/L (38-126); ANION GAP 5 (5-19); ASPARTATE AMINO TRANSFERASE 32 U/L (17-59); BILIRUBIN,DIRECT 0.3 mg/dL (0.0-0.4); BILIRUBIN,TOTAL 0.5 mg/dL (0.2-1.3); BLOOD UREA NITROGEN 16 mg/dL (7-20); CALCIUM 8.7 mg/dL (8.4-10.2); CARBON DIOXIDE 32 mmol/L (22-30); CHLORIDE 100 mmol/L (98-107); CHOLESTEROL 147.09 mg/dL (0-200); GLUCOSE 103 mg/dL (75-110); POTASSIUM 4.3 mmol/L (3.6-5.0); TOTAL PROTEIN 6.6 g/dL (6.3-8.2); TRIGLYCERIDES 136 mg/dL (<150)
[2020-05-30 12:36] LABS: DIRECT LDL 80 mg/dL (<100)
[2020-05-30 12:41] LABS: FREE T4 (FREE THYROXINE) 1.31 ng/dL (0.78-2.19)
[2020-05-30 12:55] LABS: THYROID STIMULATING HORMONE 1.85 uIU/mL (0.47-4.68)
== END ==
LOC: OD 11:20
PROVIDERS: ATTEND Internal Medicine
DX: I10 Essential (primary) hypertension (principal); E78.00 Pure hypercholesterolemia, unspecified; R41.89 Other symptoms and signs involving cognitive functions and awareness; F03.90 Unspecified dementia, unspecified severity, without behavioral disturbance, psychotic disturbance, mood disturbance, and anxiety; Z79.899 Other long term (current) drug therapy
CPT/HCPCS: 36415; 80053; 80061; 84439; 84443; 85025